=== PATIENT | female | born 1940 | race Caucasian/White ===

== ENCOUNTER 2020-07-25 17:54 | Emergency (ER) | payer MEDICARE, OTHER ==
[2020-07-25] MEDS ORDERED: proPOfol 200 MG/20 ML (DIPRIVAN) VIAL IV ONE ×2 (17:58→18:09)
[2020-07-25] MEDS ORDERED: NS IV 1000 ML 1,000 ML IV SCH (18:34)
[2020-07-25] MEDS ORDERED: PROPOFOL DRIP (ICU) 100 ML IV SCH (18:45)
[2020-07-25 18:47] LABS: BASOPHILS # (AUTO) 0.1 10^3/uL (0.0-0.1); BASOPHILS % (AUTO) 1 % (0-10); EOSINOPHILS # (AUTO) 0.3 10^3/uL (0.0-0.3); EOSINOPHILS % (AUTO) 2 % (0-10); HEMATOCRIT 39 % (35-52); HEMOGLOBIN 12.9 G/DL (11.5-16.0); LYMPHOCYTES # (AUTO) 2.6 X 10^3 (1.0-4.0); LYMPHOCYTES % (AUTO) 26 % (12-44); MEAN CORPUSCULAR HEMOGLOBIN 31 PG (25-34); MEAN CORPUSCULAR HGB CONC 33 G/DL (32-36); MEAN CORPUSCULAR VOLUME 93 FL (80-99); MEAN PLATELET VOLUME 9.2 FL (7.4-10.4); MONOCYTES # (AUTO) 0.9 X 10^3 (0.0-1.0); MONOCYTES % (AUTO) 9 % (0-12); NEUTROPHILS # (AUTO) 6.3 X 10^3 (1.8-7.8); NEUTROPHILS % (AUTO) 62 % (42-75); PLATELET COUNT 391 10^3/uL (130-400); WHITE BLOOD COUNT 10.3 10^3/uL (4.3-11.0)
--- NOTE | 2020-07-25 18:50 | ED Neurological Problem ---
General Chief Complaint: Unresponsive Stated Complaint: FALL Source: patient Exam Limitations: no limitations History of Present Illness Date Seen by Provider: Jul 25, 2020 Time Seen by Provider: 18:00 Initial Comments Patient arrives to ER by EMS from home with chief complaint the family thought she was doing a seizure like activity. EMS reports she was slowly moving all 4 extremities not answer any questions. They said there was a bottle of 60 days worth of hydrocodone on the nightstand next to her in bed and it was filled about 30 days ago. The bottle was completely empty. They suspected she may have taken the tablets and so they gave her a dose of Narcan which made her more animated but not any more coherent. Patient was unable to give any meaningful history. Apparently neither was family. They noted her pupils to be pinpoint before Narcan and about 2-3 mm and sluggish after Narcan. She was on a nonrebreather when she arrived. Nursing staff was finally able to get a hold of patient's family who remarks that she did have a fall at 5:30 PM tonight. No mention of any blood thinners. They did get a med list from the primary care provider and she is on lisinopril amlodipine and some other blood pressure medicines. Allergies and Home Medications Allergies Coded Allergies: No Allergy Information Available (Unverified , 07/25/20) obtunded Patient Home Medication List Home Medication List Reviewed: Yes Review of Systems Review of Systems Constitutional: see HPI (unable to obtain a review of systems secondary to patient's mental status.) All Other Systems Reviewed Negative Unless Noted: Yes Past Idgmhrl-Vltmdp-Teqqyd Hx Patient Social History Smoking Status: Unknown if Ever Smoked Recent Foreign Travel: No Contact w/Someone Who Travel: No Physical Exam Vital Signs Vital Signs - First Documented 07/25/20 18:17 Temp 35.9 Pulse 108 Resp 16 B/P (MAP) 196/122 (146) Pulse Ox 100 O2 Delivery Mechanical Ventilator Capillary Refill : Height, Weight, BMI Height: '" Weight: lbs. oz. kg; BMI Method: General Appearance: WD/WN, moderate distress HEENT: PERRL/EOMI, normal ENT inspection, TMs normal; No pharynx normal (oropharynx mucosa is dry) Neck: non-tender, full range of motion, supple, normal inspection Respiratory: lungs clear, normal breath sounds, respiratory distress (mild with 97% on room air after arrival and an ET CO2 of 30), accessory muscle use Cardiovascular: normal peripheral pulses, regular rate, rhythm, other (heart rate 80-90 with significantly elevated blood pressure 210/120.) Peripheral Pulses: 2+ Dorsalis Pedis (R), 2+ Left Dors-Pedis (L), 2+ Radial Pulses (R), 2+ Radial Pulses (L) Gastrointestinal: non tender, soft Extremities: normal range of motion, non-tender, normal inspection, no pedal edema, normal capillary refill Neurologic/Psychiatric: alert, other (GCS 10.) Crainal Nerves: PERRL Motor/Sensory: no motor deficit, no sensory deficit Skin: normal color, warm/dry Procedures/Interventions Date of ETT Placement: Jul 25, 2020 Time of ETT Placement: 1816 Tube Size: 7.50 Progress/Results/Core Measures Results/Orders Lab Results Laboratory Tests Test 07/25/20 18:05 07/25/20 18:10 07/25/20 18:35 Range/Units Blood Gas Puncture Site R RADIAL Blood Gas Patient Temperature 36.4 Arterial Blood pH 7.46 H 7.37-7.43 Arterial Blood Partial Pressure CO2 41 35-45 MMHG Arterial Blood Partial Pressure O2 77 L 79-93 MMHG Arterial Blood HCO3 29 H 23-27 MMOL/L Arterial Blood Total CO2 30.5 21.0-31.0 MMOL/L Arterial Blood Oxygen Saturation 96 94-100 % Arterial Blood Base Excess 4.9 H -2.5-2.5 MMOL/L Scout Test YES-POS Blood Gas Ventilator Setting NO Blood Gas Inspired Oxygen 2 L White Blood Count 10.3 4.3-11.0 10^3/uL Red Blood Count 4.19 L 4.35-5.85 10^6/uL Hemoglobin 12.9 11.5-16.0 G/DL Hematocrit 39 35-52 % Mean Corpuscular Volume 93 80-99 FL Mean Corpuscular Hemoglobin 31 25-34 PG Mean Corpuscular Hemoglobin Concent 33 32-36 G/DL Red Cell Distribution Width 12.7 10.0-14.5 % Platelet Count 391 130-400 10^3/uL Mean Platelet Volume 9.2 7.4-10.4 FL Immature Granulocyte % (Auto) 1 % Neutrophils (%) (Auto) 62 42-75 % Lymphocytes (%) (Auto) 26 12-44 % Monocytes (%) (Auto) 9 0-12 % Eosinophils (%) (Auto) 2 0-10 % Basophils (%) (Auto) 1 0-10 % Neutrophils # (Auto) 6.3 1.8-7.8 X 10^3 Lymphocytes # (Auto) 2.6 1.0-4.0 X 10^3 Monocytes # (Auto) 0.9 0.0-1.0 X 10^3 Eosinophils # (Auto) 0.3 0.0-0.3 10^3/uL Basophils # (Auto) 0.1 0.0-0.1 10^3/uL Immature Granulocyte # (Auto) 0.1 0.0-0.1 10^3/uL Sodium Level 135 135-145 MMOL/L Potassium Level 4.1 3.6-5.0 MMOL/L Chloride Level 96 L 98-107 MMOL/L Carbon Dioxide Level 27 21-32 MMOL/L Anion Gap 12 5-14 MMOL/L Blood Urea Nitrogen 8 7-18 MG/DL Creatinine 0.78 0.60-1.30 MG/DL Estimat Glomerular Filtration Rate > 60 BUN/Creatinine Ratio 10 Glucose Level 101 70-105 MG/DL Calcium Level 9.5 8.5-10.1 MG/DL Corrected Calcium 9.4 8.5-10.1 MG/DL Magnesium Level 1.8 1.6-2.4 MG/DL Total Bilirubin 0.4 0.1-1.0 MG/DL Aspartate Amino Transf (AST/SGOT) 17 5-34 U/L Alanine Aminotransferase (ALT/SGPT) 9 0-55 U/L Alkaline Phosphatase 91 40-136 U/L Troponin I < 0.30 <0.30 NG/ML C-Reactive Protein 0.05 <0.50 MG/DL Total Protein 7.2 6.4-8.2 GM/DL Albumin 4.1 3.2-4.5 GM/DL Salicylates Level < 0.3 L 5.0-20.0 MG/DL Acetaminophen Level < 10 L 10-30 UG/ML Serum Alcohol 11 H <10 MG/DL Urine Color PALE YELLOW Urine Clarity CLEAR Urine pH 8.0 5-9 Urine Specific Mascot 1.020 1.016-1.022 Urine Protein 1+ H NEGATIVE Urine Glucose (UA) NEGATIVE NEGATIVE Urine Ketones NEGATIVE NEGATIVE Urine Nitrite NEGATIVE NEGATIVE Urine Bilirubin NEGATIVE NEGATIVE Urine Urobilinogen 0.2 < = 1.0 MG/DL Urine Leukocyte Esterase 1+ H NEGATIVE Urine RBC (Auto) 1+ H NEGATIVE Urine RBC 10-25 H /HPF Urine WBC 0-2 /HPF Urine Squamous Epithelial Cells NONE /HPF Urine Crystals NONE /LPF Urine Bacteria NEGATIVE /HPF Urine Casts NONE /LPF Urine Mucus NEGATIVE /LPF Urine Culture Indicated NO Urine Opiates Screen POSITIVE H NEGATIVE Urine Oxycodone Screen NEGATIVE NEGATIVE Urine Methadone Screen NEGATIVE NEGATIVE Urine Propoxyphene Screen NEGATIVE NEGATIVE Urine Barbiturates Screen NEGATIVE NEGATIVE Ur Tricyclic Antidepressants Screen NEGATIVE NEGATIVE Urine Phencyclidine Screen NEGATIVE NEGATIVE Urine Amphetamines Screen NEGATIVE NEGATIVE Urine Methamphetamines Screen NEGATIVE NEGATIVE Urine Benzodiazepines Screen NEGATIVE NEGATIVE Urine Cocaine Screen NEGATIVE NEGATIVE Urine Cannabinoids Screen NEGATIVE NEGATIVE My Orders Orders - ANEUDY GUY Propofol Injection (Diprivan Injection) (07/25/20 18:09) Cbc With Automated Diff (07/25/20 18:34) Comprehensive Metabolic Panel (07/25/20 18:34) Arterial Blood Gas (07/25/20 18:34) Magnesium (07/25/20 18:34) Ua Culture If Indicated (07/25/20 18:34) Drug Screen Stat (Urine) (07/25/20 18:34) Ekg Tracing (07/25/20 18:34) Continuous Ekg Monitoring (07/25/20 18:34) Troponin I Fs (07/25/20 18:34) Salicylate (07/25/20 18:34) Acetaminophen (07/25/20 18:34) Propofol Drip (Icu) (Diprivan Drip (Icu) (07/25/20 18:45) Ct Head/Cervical Spine Wo (07/25/20 18:34) Chest 1 View Ap/Pa Only (07/25/20 18:34) Ed Iv/Invasive Line Start (07/25/20 18:34) Ns Iv 1000 Ml (Sodium Chloride 0.9%) (07/25/20 18:34) Crp Fs (07/25/20 18:10) Alcohol (07/25/20 19:13) Hydralazine Injection (Apresoline Inject (07/25/20 19:30) Labetalol Injection (Normodyne Injection (07/25/20 19:38) Verapamil Injection (Calan Injection) (07/25/20 19:42) Ns (Ivpb) (Sodium Chloride 0.9% Ivpb Bag (07/25/20 19:42) Midazolam Injection (Versed Injection) (07/25/20 19:45) Ns (Ivpb) (Sodium Chloride 0.9% Ivpb Bag (07/25/20 19:48) Labetalol Injection (Normodyne Injection (07/25/20 20:00) Ns (Ivpb) (Sodium C... W/Midazolam Injec (07/25/20 20:00) Esmolol Drip Premix (Brevibloc Drip Donavan (07/25/20 19:54) Esmolol Drip Premix (Brevibloc Drip Doanvan (07/25/20 20:00) Arterial Blood Gas (07/25/20 20:09) Vital Signs/I&O 07/25/20 18:17 Temp 35.9 Pulse 108 Resp 16 B/P (MAP) 196/122 (146) Pulse Ox 100 O2 Delivery Mechanical Ventilator Progress Progress Note #1: Time: 18:48 Progress Note Cerebrovascular accident/bleed versus hypertensive encephalopathy versus metabolic encephalopathy such as from a toxic overdose of opiates. Although the patient's GCS is 10 she is not protecting her airway. A nasopharyngeal airway was easily placed. She is moving all 4 extremities although she is moving her left side much better than her right side. She does not appear to be seizing. Unclear if she could be postictal however I do not suspect she is protecting her airway so we elected to intubate the patient emergently. We gave her 2 mg of Versed initially which helped slow her rhythmic convulsive movement and then intubated her appropriately using proper RSI. Andrade catheter and another IV site was established. Blood, ABG, cultures, chest x-ray, CT of her head and C-spine. We'll get some toxidrome labs and transfer to appropriate facility with ICU care. Progress Note #2: Time: 19:18 Progress Note Patient appears to have a intraparenchymal bleed on CT. I will try and get her somewhere that has no neuro capability. We are paging helicopter however poor icing weather makes this unlikely to be a possibility. Progress Note #3: Time: 19:50 Progress Note After labetalol her blood pressure is much better 142/90. We have had to use her said in addition to propofol to control her sedation. Helicopter unavailable due to weather. Progress Note #4: Time: 20:12 Progress Note after a bolus of labetalol her blood pressure is down now to 122 systolic. We did discover esmolol but we are holding off starting that drip. We did start a drip of Versed for sedation. 100 g of fentanyl were given for comfort. EMS has arrived for transport. Repeat ABG drawn and FiO2 decreased to 0.6. Initial ECG Impression Date: Jul 25, 2020 Initial ECG Impression Time: 18:19 Initial ECG Rate: 102 Initial ECG Rhythm: S.Tach Initial ECG Intervals: Normal Initial ECG Impression: Normal Initial ECG Comparisson: No Previous ECG Available Comment Sinus tachycardia without clinically relevant ST elevation. There is some ST depression approximately one to one and a half box in leads V3, V4 and even V5. 2, 3 and aVF also have some ST depression 1 box or less. Diagnostic Imaging Diagonstic Imaging: Xray Plain Films/CT/US/NM/MRI: chest Comments There is an ET tube in appropriate positioned appropriately above the tatianna without pneumothorax or obvious pneumonia on one view chest x-ray. NAME: [facility] REC#: [id number] PT STATUS: REG ER : 1940 PHYSICIAN: ANEUDY GUY MD ADMIT DATE: 07/25/20/ER FS Draft Date of Exam:07/25/20 CHEST 1 VIEW AP/PA ONLY CHEST 1 VIEW AP/PA ONLY Indication: Intubation, altered mental status. Comparison: None available. Findings: No focal airspace disease in the visualized lungs. Please note that the posterior lower lobes are poorly evaluated by portable radiography. No pleural effusion or pneumothorax. Prominent skinfold overlying the right hemithorax accounts for an apparent pneumothorax. However, there are lung markings seen in both medial and lateral to this skin fold. There is an additional skin fold in the left upper lung zone as well. Normal cardiomediastinal silhouette. ET tube has tip 4.5 cm above the tatianna. Enteric tube courses into the stomach and off the [id number]. Impression: 1. Well-positioned ET and enteric tubes. 2. No acute process. Bilateral skin folds are present and there are no pneumothoraces. Dictated on workstation # [id number] Dict: 07/25/201857 Trans: 07/25/201910 [facility] [id number] Interpreted by: HUBERT GORDILLO MD Electronically signed by: Reviewed: Reviewed by Me Diagonstic Imaging: CT Plain Films/CT/US/NM/MRI: head Comments NAME: ANNIE COLÓN [facility] REC#: [id number] PT STATUS: REG ER : 1940 PHYSICIAN: ANEUDY GUY MD ADMIT DATE: 07/25/20/ER FS Signed Date of Exam:07/25/20 CT HEAD/CERVICAL SPINE WO PROCEDURE: CT head and CT cervical spine without contrast. TECHNIQUE: Multiple contiguous axial images were obtained through the brain and cervical spine without the use of intravenous contrast. Sagittal and coronal reformations through the cervical spine were then performed. Auto Exposure Controls were utilized during the CT exam to meet ALARA standards for radiation dose reduction. INDICATION: Encephalopathy, altered mental status. COMPARISON: None available. FINDINGS: Head: There is a large intraparenchymal hemorrhage in the left basal ganglia measuring 5.4 x 4.4 cm. This has a small amount of surrounding vasogenic edema and does result in mass effect with approximately 5 mm of stqw-fj-emgxp midline shift. There is intraventricular extension of the hemorrhage into the bilateral lateral ventricles. No obstructive hydrocephalus. There are additional areas of white matter hypoattenuation that are likely due to chronic microvascular ischemic disease. No skull fracture. Small air-fluid level in the right maxillary sinus. Cervical spine: No acute fracture or traumatic malalignment. Multilevel moderate to severe degenerative changes in the cervical spine. No high-grade spinal stenosis. No retropharyngeal fluid collection. ET tube and orogastric tubes are in place. Nasopharyngeal tube is also noted. IMPRESSION: 1. Large intraparenchymal hematoma in the left basal ganglia is most likely a hypertensive hemorrhage. This does have intraventricular extension and causes approximately 5 mm of left to right midline shift. 2. No acute fracture or traumatic malalignment in the cervical spine. Dr. Guy was aware of these findings at the time of the dictation as relayed by the emergency room nurse. Dictated by: Dictated on workstation # [id number] Dict: 07/25/201934 Trans: 07/25/201944 [facility] [id number] Interpreted by: HUBERT GORDILLO MD Electronically signed by: HUBERT GORDILLO MD 07/25/201944 Reviewed: Reviewed by Me Critical Care Note Critical Care Start Time: 18:00 Stop Time: 18:30 Total Time (minutes) 30 m Progress The patient was evaluated and found to be lacking ability to protect her airway, intubated and put on propofol. Apparently we have an apparent dried out for propofol. If propofol runs out we can switch her over to a Versed drip. ABG shows alkalosis from a metabolic source with relatively normal oxygenation on 2 L per nasal cannula. There may be a relative mild hypoxia without the 2 L by nasal cannula. This reinforces our concern for metabolic source of her encephalopathy. Her blood pressure is coming down now to 180/137. If it does not continue to come down then we will give her some hydralazine. Were giving her a liter of fluids to help flush out whatever she may have taken. Departure Impression Primary Impression: Intraparenchymal hemorrhage of brain Additional Impression: Fall Qualified Codes: W19.XXXA - Unspecified fall, initial encounter Disposition: 01 HOME, SELF-CARE Condition: Stable Transfer Transfer Reason: Exceeds level of care (neuro care) Time Spoke to Accepting Phy: 19:40 Transfer Progress Notes Spoke to Dr. Ildefonso Meyers neuro feltmaker and he wants us to get the pressure down to a goal of 140 systolic. He accepts the patient. He would like us to send the patient to the ER. Dr. Tl Verma in the emergency room accepts the patient. Transfer Facility: [place], [place]. Method of Transfer: EMS Departure-Patient Inst. Referrals: LAZARO ANGEL DO (PCP/Family) Primary Care Physician ANEUDY GUY Jul 25, 2020 18:50
[2020-07-25 18:52] LABS: BACTERIA,URINE NEGATIVE /HPF; BILIRUBIN,URINE NEGATIVE (NEGATIVE); CLARITY,URINE CLEAR; COLOR,URINE PALE YELLOW; GLUCOSE, URINE (UA) NEGATIVE (NEGATIVE); KETONES,URINE NEGATIVE (NEGATIVE); LEUKOCYTE ESTERASE ,URINE 1+ (NEGATIVE); NITRITE,URINE NEGATIVE (NEGATIVE); PROTEIN,URINE 1+ (NEGATIVE); WBC,URINE 0-2 /HPF
[2020-07-25 18:54] LABS: ABG BASE EXCESS 4.9 MMOL/L (-2.5-2.5); ABG OXYGEN SATURATION 96 % (94-100); ABG PCO2 41 MMHG (35-45); ABG PH 7.46 (7.37-7.43); ABG PO2 77 MMHG (79-93); ABG TCO2 30.5 MMOL/L (21.0-31.0); ALLENS TEST YES-POS; INSPIRED O2 2 L; VENTILATOR NO
[2020-07-25 18:55] LABS: PATIENT TEMP 36.4
[2020-07-25 18:57] LABS: POTASSIUM 4.1 MMOL/L (3.6-5.0); SODIUM 135 MMOL/L (135-145)
[2020-07-25 18:58] LABS: ALBUMIN 4.1 GM/DL (3.2-4.5); ALKALINE PHOSPHATASE 91 U/L (40-136); BILIRUBIN,TOTAL 0.4 MG/DL (0.1-1.0); BUN/CREATININE RATIO 10; CALCIUM 9.5 MG/DL (8.5-10.1); CARBON DIOXIDE 27 MMOL/L (21-32); CHLORIDE 96 MMOL/L (98-107); CREATININE SERUM 0.78 MG/DL (0.60-1.30); GFR ESTIMATED > 60; GLUCOSE 101 MG/DL (70-105); MAGNESIUM 1.8 MG/DL (1.6-2.4); TOTAL PROTEIN 7.2 GM/DL (6.4-8.2)
--- NOTE | 2020-07-25 18:58 | NUR ---
Pt arrived by EMS with chief complaint of restless, unresponsive. EMS was paged out to her house with complaint of seizure like activity. Pt was very restless and jerking for EMS. EMS stated that it is not seizure like activity, but maybe an overdose. Pt is normally normal family stated on scene to EMS. EMS started 22 gauge IV in right AC and wrapped a arm board around it. They gave pt 1 mg of Narcan. EMS stated that patient woke a little bit after giving narcan. They stated patient's pupils were pinpoint and they found a bottle of hydrocodone (60 days worth) filled less than a month ago, and it is completely empty. EMS had pt on a non rebreather on 3 liters of oxygen which brought oxygen saturation up to 97%. They were unable to get blood pressure or heart rate, because pt was restless. On arrival, pt was moved from stretcher to ER bed. Pt's vital signs were taken as charted. Pt had soiled her pants. Pt could not stay still and was flopping all over the bed and restless. Unable to get vital signs complete set of vital signs, then decided to intubate pt. Pt was given versed at 1810. Pt was given breaths via BVM. 1814 Etomidate and isaac. Breaths were given, before placement. ET was inserted and inflated at 1816. CO2 indicator shows color change. Doctor listened to patient. ETCO2 was applied to ET tube and xray was done. NG tube 18 icelandic inserted in right side of mouth. 16 Tamazight Andrade catheter inserted and urine sample obtained. EKG was obtained at 1818. Initial vital signs 196/122, 108 heart rate 100% via NC @ 2 liters, 36.4 degrees celcius. Pt weights 42.7 kg on bed scale Vital signs after intubation at 1816: 102 heart rate, 99% on mechanical vent, 43 etco2, 16 respirations, 209/120 blood pressure, 35.9 degrees celcius Mechanical vent settings: 16 rate, 450 tidal volume, peep 5 ET tube: size 7.5, inflated 10 mls, 25 at lip
[2020-07-25 18:59] LABS: ACETAMINOPHEN < 10 UG/ML (10-30); SALICYLATE < 0.3 MG/DL (5.0-20.0)
[2020-07-25 19:05] LABS: ALANINE AMINOTRANSFERASE 9 U/L (0-55)
--- NOTE | 2020-07-25 19:12 | Diagnostic Imaging Report ---
CHEST 1 VIEW AP/PA ONLY Indication: Intubation, altered mental status. Comparison: None available. Findings: No focal airspace disease in the visualized lungs. Please note that the posterior lower lobes are poorly evaluated by portable radiography. No pleural effusion or pneumothorax. Prominent skinfold overlying the right hemithorax accounts for an apparent pneumothorax. However, there are lung markings seen in both medial and lateral to this skin fold. There is an additional skin fold in the left upper lung zone as well. Normal cardiomediastinal silhouette. ET tube has tip 4.5 cm above the tatianna. Enteric tube courses into the stomach and off the kfhdy-pr-lqdz. Impression: 1. Well-positioned ET and enteric tubes. 2. No acute process. Bilateral skin folds are present and there are no pneumothoraces. Dictated by: Dictated on workstation # [id number]
[2020-07-25 19:19] LABS: AMPHETAMINE SCREEN, URINE NEGATIVE (NEGATIVE); BARBITURATE SCREEN URINE NEGATIVE (NEGATIVE); BENZODIAZEPINES SCREEN URINE NEGATIVE (NEGATIVE); CANNABINOID SCREEN, URINE NEGATIVE (NEGATIVE); COCAINE SCREEN URINE NEGATIVE (NEGATIVE); METHADONE STAT NEGATIVE (NEGATIVE); METHAMPHETAMINE SCREEN URINE S NEGATIVE (NEGATIVE); OPIATE SCREEN URINE POSITIVE (NEGATIVE); OXYCODONE STAT NEGATIVE (NEGATIVE); PROPOXYPHENE STAT NEGATIVE (NEGATIVE); TRICYCLIC ANTIDEPRESSANTS SCRE NEGATIVE (NEGATIVE)
--- NOTE | 2020-07-25 19:29 | NUR ---
[facility] was contacted about helicopter. They declined due to weather, but was going to check fixed wing. They called back and stated that they have some really far away. I informed him that I was just about to call him and let him know it would be faster for us to go by ground.
[2020-07-25] MEDS ORDERED: hydrALAZINE (APESOLINE) 20 MG/ML VIAL IV ONE (19:30)
--- NOTE | 2020-07-25 19:31 | NUR ---
[facility] was contacted at this time about transferring pt to [facility]. [facility] stated [facility] was full and did not have any ICU beds available. Her house sup was seeing if [facility] has any available. She was going to page neuro on-call and get back to us. Called [facility] back at 1946 to let them know we have an accepting at [facility].
[2020-07-25] MEDS ORDERED: LABETALOL HCL 20 MG/4 ML VIAL ONE (19:38)
[2020-07-25] MEDS ORDERED: NS (IVPB) 0 ML ONE (19:42)
[2020-07-25] MEDS ORDERED: VERAPAMIL 5 MG/2 ML (CALAN) VIAL IV ONE (19:42)
--- NOTE | 2020-07-25 19:42 | NUR ---
[facility] called at this time. I informed them that we found a placement at [facility].
--- NOTE | 2020-07-25 19:43 | NUR ---
Daughter was called at this time - Kassy ([phone]). She was updated about her mother. She stated that the pt's grandson was there and at 1730 she fell. She might have hit her head.
--- NOTE | 2020-07-25 19:44 | Diagnostic Imaging Report ---
PROCEDURE: CT head and CT cervical spine without contrast. TECHNIQUE: Multiple contiguous axial images were obtained through the brain and cervical spine without the use of intravenous contrast. Sagittal and coronal reformations through the cervical spine were then performed. Auto Exposure Controls were utilized during the CT exam to meet ALARA standards for radiation dose reduction. INDICATION: Encephalopathy, altered mental status. COMPARISON: None available. FINDINGS: Head: There is a large intraparenchymal hemorrhage in the left basal ganglia measuring 5.4 x 4.4 cm. This has a small amount of surrounding vasogenic edema and does result in mass effect with approximately 5 mm of gyrh-rx-pxhxv midline shift. There is intraventricular extension of the hemorrhage into the bilateral lateral ventricles. No obstructive hydrocephalus. There are additional areas of white matter hypoattenuation that are likely due to chronic microvascular ischemic disease. No skull fracture. Small air-fluid level in the right maxillary sinus. Cervical spine: No acute fracture or traumatic malalignment. Multilevel moderate to severe degenerative changes in the cervical spine. No high-grade spinal stenosis. No retropharyngeal fluid collection. ET tube and orogastric tubes are in place. Nasopharyngeal tube is also noted. IMPRESSION: 1. Large intraparenchymal hematoma in the left basal ganglia is most likely a hypertensive hemorrhage. This does have intraventricular extension and causes approximately 5 mm of left to right midline shift. 2. No acute fracture or traumatic malalignment in the cervical spine. Dr. Guy was aware of these findings at the time of the dictation as relayed by the emergency room nurse. Dictated by: Dictated on workstation # [id number]
[2020-07-25] MEDS ORDERED: MIDAZOLAM 5 MG/5 ML (VERSED) VIAL ONE (19:45)
[2020-07-25] MEDS ORDERED: NS (IVPB) 50 ML ONE (19:48)
--- NOTE | 2020-07-25 19:50 | NUR ---
EMS was notified about transfer to [facility].
--- NOTE | 2020-07-25 19:52 | NUR ---
EMS was notified that they need another screw down to assist with transfer. [facility] stated they will be in soon.
[2020-07-25] MEDS ORDERED: ESMOLOL DRIP PREMIX 250 ML IV ONE (19:54)
--- NOTE | 2020-07-25 19:55 | NUR ---
Dr. Bourne gave list of medications: lisinipril, hydrocodone, prednisone, amlodipine, atorvastatin
[2020-07-25] MEDS ORDERED: LABETALOL HCL 20 MG/4 ML VIAL IV ONE (20:00)
[2020-07-25] MEDS ORDERED: ESMOLOL DRIP PREMIX 250 ML IV SCH (20:00)
[2020-07-25] MEDS ORDERED: MIDAZOLAM INJECTION FOR DRIPS 50 MG in NS (IVPB) 90 ML IV SCH (20:00)
[2020-07-25] MEDS ORDERED: LORazepam INJ 2 MG/ML (ATIVAN) VIAL ONE (20:14)
[2020-07-25] MEDS ORDERED: LORazepam INJ 2 MG/ML (ATIVAN) VIAL IVP ONE (20:15)
[2020-07-25 20:17] LABS: ABG PCO2 42 MMHG (35-45); ABG PH 7.43 (7.37-7.43); ABG PO2 300 MMHG (79-93); ABG TCO2 29.2 MMOL/L (21.0-31.0)
[2020-07-25 20:18] LABS: ABG BASE EXCESS 3.2 MMOL/L (-2.5-2.5); ABG OXYGEN SATURATION 100 % (94-100); ALLENS TEST YES-POS; PATIENT TEMP 36.7; VENTILATOR YES
--- NOTE | 2020-07-25 20:20 | NUR ---
1920 2mg versed 1930 versed 1mg 1930 hydralazine 10mg and 10.1 propofol 40 mcg/kg/hour 1938 labetolol 20 mg .1 mg/kg/hour versed 1946 2.5mg versed 1957 100 fentanyl 2006 versed 0.1mg/kg/hr 2010 FiO2 decrease 80% down to 60% 2015 4mg Ativan 2018 EMS arrived
[2020-07-25 20:38] VITALS: BP 122/70
== END 2020-07-25 20:38 | disposition home or self-care (01) ==
LOC: ER FS 17:57
DX: S06.890A Other specified intracranial injury without loss of consciousness, initial encounter (principal); R40.2420 Glasgow coma scale score 9-12, unspecified time; W19.XXXA Unspecified fall, initial encounter
CPT/HCPCS: 31500; 36415; 51702; 70450; 71045; 72125; 80053; 80306; 81000; 82805; 83735; 84484; 85025; 86141; 93005; 99291; G0480 ×3; 80320; 80329